=== PATIENT | female | born 1975 | race Two or more races ===

== ENCOUNTER 2021-01-25 14:20 | Outpatient (CLI) | payer OTHER | END 2021-01-25 14:33 | disposition home or self-care (01) | LOC: MAMO-SONO 14:20 | PROVIDERS: ATTEND Obstetrics & Gynecology | DX: R92.1 Mammographic calcification found on diagnostic imaging of breast (principal); N60.11 Diffuse cystic mastopathy of right breast; N60.12 Diffuse cystic mastopathy of left breast ==